=== PATIENT | male | born 1990 | race Hispanic/Latino ===

== ENCOUNTER 2017-09-27 23:09 | Emergency (ER) | payer OTHER ==
[2017-09-27 23:33] VITALS: RESP 18
--- NOTE | 2017-09-28 00:34 | ED PDOC ---
HPI: CCC, URI, Sore Throat Time Seen by Provider: 09/28/17 00:15 Chief Complaint (Nursing): ENT Problem Chief Complaint (Provider): cough, congestion History Per: Patient History/Exam Limitations: no limitations Onset/Duration Of Symptoms: Days (3) Current Symptoms Are (Timing): Still Present Associated Symptoms: Sore Throat, Cough, Sputum, Nasal Congestion Additional History Per: Patient Additional Complaint(s): 26 y/o male presents for evaluation of cough/congestion x 3 days. Patient reports tactile fevers, nasal congestion, bilateral ear fullness, throat pain, and productive cough. No improvement with Lilly-D. Denies chest pain, shortness of breath, palpitations, abdominal pain, recent travel, sick contacts. Past Medical History Reviewed: Historical Data, Nursing Documentation, Vital Signs Vital Signs: Last Vital Signs Temp 98 F 09/27/17 23:30 Pulse 72 09/27/17 23:30 Resp 18 09/27/17 23:30 BP 131/82 09/27/17 23:30 Pulse Ox 98 09/28/17 00:34 - Medical History PMH: Anxiety Denies: Chronic Kidney Disease - Family History Family History: States: Unknown Family Hx - Home Medications Home Medications: Ambulatory Orders Medication Instructions Recorded Lactobacillus Combo No.10 1 each PO DAILY 01/15/16 [Probiotic] Fluticasone Nasal [Flonase] 1 actuation NS BID #1 bottle 09/28/17 Ibuprofen [Motrin Tab] 1 tab PO Q6 PRN #20 tab 09/28/17 guaiFENesin/Dextromethorphan 1 - 2 tab PO Q12 PRN #20 tab 09/28/17 [guaiFENesin/DM 600-30 mg] - Allergies Allergies/Adverse Reactions: Allergies Allergy/AdvReac Type Severity Reaction Status Date / Time No Known Allergies Allergy Verified 09/01/15 23:32 Review of Systems ROS Statement: Except As Marked, All Systems Reviewed And Found Negative Constitutional: Positive for: Fever ENT: Positive for: Ear Pain, Throat Pain Respiratory: Positive for: Cough, Sputum Physical Exam - Reviewed Nursing Documentation Reviewed: Yes Vital Signs Reviewed: Yes - Physical Exam Appears: Positive for: Well, Non-toxic, No Acute Distress Head Exam: Positive for: ATRAUMATIC, NORMAL INSPECTION, NORMOCEPHALIC Skin: Positive for: Normal Color Eye Exam: Positive for: Normal appearance ENT: Positive for: Normal ENT Inspection Cardiovascular/Chest: Positive for: Regular Rate, Rhythm Respiratory: Positive for: Normal Breath Sounds Gastrointestinal/Abdominal: Positive for: Normal Exam Back: Positive for: Normal Inspection Extremity: Positive for: Normal ROM Neurologic/Psych: Positive for: Alert, Oriented - ECG O2 Sat by Pulse Oximetry: 98 - Radiology X-Ray: Viewed By Me X-Ray Interpretation: No Acute Disease - Progress ED Course And Treament: strep, flu, chest xray Patient educated on findings, discharged with rx Ibuprofen, FLonase, Mucinex DM Advised follow up PMD 2-3 days. REturn precautions given. Disposition - Clinical Impression Clinical Impression: Upper respiratory infection - Patient ED Disposition Is Patient to be Admitted: No Counseled Patient/Family Regarding: Studies Performed, Diagnosis, Need For Followup, Rx Given - Disposition Referrals: Shaik Cifuentes MD [Primary Care Provider] - Disposition: Routine/Home Disposition Time: 02:20 Condition: IMPROVED Prescriptions: Fluticasone Nasal [Flonase] 1 actuation NS BID #1 bottle guaiFENesin/Dextromethorphan [guaiFENesin/DM 600-30 mg] 1 - 2 tab PO Q12 PRN # 20 tab PRN Reason: cough and congestion Ibuprofen [Motrin Tab] 1 tab PO Q6 PRN #20 tab PRN Reason: Pain, Moderate (4-7) Instructions: Viral Upper Respiratory Infection, Adult (DC) Forms: [facility] ([place]), [facility] ED School/Work Excuse
[2017-09-28 02:30] VITALS: BP 126/74; PULSE 79; TEMP 98.1
[2017-09-28 02:32] VITALS: O2SAT 98
--- NOTE | 2017-09-28 09:51 | RAD ---
HISTORY: Cough. COMPARISON: 09/02/2015. TECHNIQUE: Chest PA and lateral FINDINGS: LUNGS: No active pulmonary disease. PLEURA: No significant pleural effusion identified. No pneumothorax apparent. CARDIOVASCULAR: Normal. OSSEOUS STRUCTURES: No significant abnormalities. VISUALIZED UPPER ABDOMEN: Normal. OTHER FINDINGS: None. IMPRESSION: No active disease. No significant interval change compared to the prior examination(s).
== END 2017-09-28 02:28 | disposition home or self-care (01) ==
LOC: H.ER 23:09
DX: F41.9 Anxiety disorder, unspecified (principal)

== ENCOUNTER 2017-12-15 20:21 | Emergency (ER) | payer OTHER ==
[2017-12-15 20:39] VITALS: RESP 18; TEMP 98.6
[2017-12-15] MEDS ORDERED: Iohexol 240 (50 ml) PO ONE (21:48)
[2017-12-15] MEDS ORDERED: Sodium Chloride 0.9% 1,000 ML IV STA (21:48)
[2017-12-15] MEDS ORDERED: Iohexol 240 (50 ml) ONE (21:52)
--- NOTE | 2017-12-15 21:54 | ED PDOC ---
HPI: Abdomen Time Seen by Provider: 12/15/17 21:32 Chief Complaint (Nursing): Chest Pain Chief Complaint (Provider): Chest pain History Per: Patient History/Exam Limitations: no limitations Onset/Duration Of Symptoms: Days (2) Current Symptoms Are (Timing): Still Present Additional Complaint(s): Pt. with chest pain to the left lateral chest on eating. Started after going into a freezer at work. When not eating, pain in chest is gone. Pt. with abd pain left lower. No testicular pain, dysuria. No weakness, headaches, dizziness. No back pain. No leg pain, dyspnea, long distance travel, hormone tx. Past Medical History Reviewed: Nursing Documentation, Vital Signs Vital Signs: Last Vital Signs Temp 98.6 F 12/15/17 20:36 Pulse 76 12/15/17 20:36 Resp 18 12/15/17 20:36 BP 116/65 12/15/17 21:25 Pulse Ox 98 12/15/17 21:55 - Medical History PMH: Anxiety Denies: Chronic Kidney Disease - Surgical History Surgical History: No Surg Hx - Family History Family History: States: Unknown Family Hx - Living Arrangements Living Arrangements: With Family - Social History Current smoker - smoking cessation education provided: No Alcohol: None Drugs: Denies - Home Medications Home Medications: Ambulatory Orders Medication Instructions Recorded Lactobacillus Combo No.10 1 each PO DAILY 01/15/16 [Probiotic] Fluticasone Nasal [Flonase] 1 actuation NS BID #1 bottle 09/28/17 Ibuprofen [Motrin Tab] 1 tab PO Q6 PRN #20 tab 09/28/17 guaiFENesin/Dextromethorphan 1 - 2 tab PO Q12 PRN #20 tab 09/28/17 [guaiFENesin/DM 600-30 mg] - Allergies Allergies/Adverse Reactions: Allergies Allergy/AdvReac Type Severity Reaction Status Date / Time No Known Allergies Allergy Verified 09/01/15 23:32 Review of Systems ROS Statement: Except As Marked, All Systems Reviewed And Found Negative Cardiovascular: Positive for: Chest Pain Gastrointestinal: Positive for: Abdominal Pain Physical Exam - Reviewed Nursing Documentation Reviewed: Yes Vital Signs Reviewed: Yes - Physical Exam Appears: Positive for: Non-toxic, No Acute Distress Head Exam: Positive for: ATRAUMATIC, NORMAL INSPECTION, NORMOCEPHALIC Skin: Positive for: Normal Color, Warm, DRY Eye Exam: Positive for: EOMI, Normal appearance, PERRL ENT: Positive for: Normal ENT Inspection Neck: Positive for: Normal, Painless ROM Cardiovascular/Chest: Positive for: Regular Rate, Rhythm. Negative for: Chest Non Tender (left lateral mild) Respiratory: Positive for: CNT, Normal Breath Sounds Gastrointestinal/Abdominal: Positive for: Soft, Tenderness (LLQ) Back: Positive for: Normal Inspection Extremity: Positive for: Normal ROM Neurologic/Psych: Positive for: Alert, Oriented - Laboratory Results Result Diagrams: 12/15/17 22:00 12/15/17 22:00 Interpretation Of Abn Labs: no acute - ECG ECG: Positive for: Interpreted By Me, Viewed By Me ECG Rhythm: Positive for: Normal QRS, Normal ST Segment, Sinus Rhythm O2 Sat by Pulse Oximetry: 98 Pulse Ox Interpretation: Normal - Progress ED Course And Treament: 2315: Stable. AAOx3. Pain free. Tolerated PO. Pt. refusing any chest x-ray or abd/pelvis ct. Pt. has capacity to make decisions. Is aaox3. Family at bedside and agree with pt. decisions. Pt. aware of possible or decreased functioning from not getting further evaluation and treatment of chest and abd pain. Is going against medical advice. Disposition - Clinical Impression Clinical Impression: Chest pain, Abdominal pain - Patient ED Disposition Is Patient to be Admitted: No Counseled Patient/Family Regarding: Studies Performed, Diagnosis - Disposition Referrals: [facility] [Outside] - 12/16/17 Disposition: Against Medical Advice Disposition Time: 23:18 Condition: STABLE Additional Instructions: You are refusing to get a catscan of your abdomen and pelvis; also a x-ray of your chest. You are aware of possible or decreased functioning from the causes of your pain that could have been identified from the imaging. YOu are going against medical advice. Instructions: Chest Pain, Acute Abdomen (Belly Pain), Adult (DC)
[2017-12-15 22:16] LABS: BASO # 0.1 K/uL (0.0-0.2); BASO % 0.7 % (0.0-2.0); EOS # 0.3 K/uL (0.0-0.7); EOS % 2.5 % (0.0-4.0); HEMOGLOBIN 13.9 g/dL (12.0-18.0); LYMPH # 2.5 K/uL (1.0-4.3); MEAN CELL VOLUME 88.3 fl (80.0-94.0); MEAN CORPUSCULAR HEMOGLOBIN 28.5 pg (27.0-31.0); MEAN CORPUSCULAR HGB CONC 32.3 g/dL (33.0-37.0); MEAN PLATELET VOLUME 10.5 fl (7.2-11.7); MONO # 0.8 K/uL (0.0-0.8); MONO % 7.9 % (0.0-10.0); NEUT # 6.9 K/uL (1.8-7.0); NEUT % 64.9 % (50.0-75.0); RBC 4.87 Mil/uL (4.40-5.90); RED CELL DISTRIBUTION WIDTH 13.7 % (11.5-14.5); WHITE BLOOD COUNT 10.6 K/uL (4.8-10.8)
[2017-12-15 22:31] LABS: BLOOD UREA NITROGEN 17 mg/dl (9-20); CALCIUM 8.9 mg/dL (8.4-10.2); GFR AFRICAN-AMERICAN > 60; GFR NON-AFRICAN AMERICAN > 60
[2017-12-16 00:13] VITALS: BP 112/88; PULSE 70; O2SAT 100
--- NOTE | 2017-12-19 21:23 | CARD ---
APPROVED REPORT EKG Measurement Heart [id number] <Conclusion> Normal sinus rhythm Normal ECG
== END 2017-12-16 00:05 | disposition left against medical advice (07) ==
LOC: H.ER 20:21
DX: R07.89 Other chest pain (principal); R10.9 Unspecified abdominal pain; F41.9 Anxiety disorder, unspecified
CPT/HCPCS: 80048; 84484; 85025; 96361; 96374; 99284; J1885; J7030; Q9966